=== PATIENT | male | born 1975 | race Caucasian/White ===

== ENCOUNTER 2022-03-04 18:25 | Emergency (ER) | payer SELFPAY ==
[~2022-03-04] VITALS: Ht 182.9 cm; Wt 136.0 kg
[2022-03-04] MEDS ORDERED: IBUPROFEN 400 MG TABLET. PO ONE (18:45)
[2022-03-04] MEDS ORDERED: ACETAMINOPHEN 325 MG TABLET. PO ONE (19:00)
--- NOTE | 2022-03-04 19:00 | PHYS DOC ---
Past Medical History Past Medical History: No Pertinent History Past Surgical History: Appendectomy, Cholecystectomy, Tonsillectomy Additional Past Surgical Histo: R knee General Adult EDM: Chief Complaint: MECHANICAL FALL HPI: HPI: 46-year-old male, past medical history of obesity, cholecystectomy, appendectomy, tonsillectomy, presents status post mechanical fall, patient was stepping out of his truck when his foot slipped on the wet step,'s slid backward and hit the posterior side of his head on the metal step as well as hurt his left foot. Patient has been ambulatory since. Denies any back or hip pain. No loss of consciousness, no anticoagulation. Review of Systems: Review of Systems: Constitutional: Denies fever or chills. [] Eyes: Denies change in visual acuity. [] HENT: Denies nasal congestion or sore throat. [] Respiratory: Denies cough or shortness of breath. [] Cardiovascular: Denies chest pain or edema. [] GI: Denies abdominal pain, nausea, vomiting, bloody stools or diarrhea. [] : Denies dysuria. [] Musculoskeletal: Denies back pain. + L foot pain Integument: Denies rash. [] Neurologic: + headache, no focal weakness or sensory changes. [] Endocrine: Denies polyuria or polydipsia. [] Lymphatic: Denies swollen glands. [] Psychiatric: Denies depression or anxiety. [] Heart Score: C/O Chest Pain: No Risk Factors: Risk Factors: DM, Current or recent (<one month) smoker, HTN, HLP, family history of CAD, obesity. Risk Scores: Score 0 - 3: 2.5% MACE over next 6 weeks - Discharge Home Score 4 - 6: 20.3% MACE over next 6 weeks - Admit for Clinical Observation Score 7 - 10: 72.7% MACE over next 6 weeks - Early Invasive Strategies Current Medications: Current Medications Medications (Trade) Dose Ordered Sig/Codie Start Time Stop Time Status Last Admin Dose Admin Acetaminophen (Tylenol) 650 mg 1X ONCE 03/04/22 19:00 03/04/22 19:01 Ibuprofen (Motrin) 400 mg 1X ONCE 03/04/22 18:45 03/04/22 18:48 DC Allergies: Allergies: Allergies Coded Allergies Type Severity Reaction Last Updated Verified No Known Drug Allergies 03/04/22 No Physical Exam: PE: Constitutional: Well developed, well nourished, no acute distress, non-toxic appearance. [] HENT: Normocephalic, atraumatic, bilateral external ears normal, oropharynx moist, no oral exudates, nose normal. [] Eyes: PERRLA, EOMI, conjunctiva normal, no discharge. [] Neck: Normal range of motion, no tenderness, supple, no stridor. [] Cardiovascular:Heart rate regular rhythm, no murmur [] Lungs & Thorax: Bilateral breath sounds clear to auscultation [] Abdomen: Bowel sounds normal, soft, no tenderness, no masses, no pulsatile masses. [] Skin: Warm, dry, no erythema, no rash. [] Back: No tenderness, no CVA tenderness. [] Extremities: +TTP L lateral midfoot, no deformity, ecchymosis or erythema, no cyanosis, no clubbing, ROM intact, no edema. [] Neurologic: Alert and oriented X 3, normal motor function, normal sensory function, no focal deficits noted. [] Psychologic: Affect normal, judgement normal, mood normal. [] Current Patient Data: Vital Signs: Vital Signs Date Time Temp Pulse Resp B/P (MAP) Pulse Ox O2 Delivery O2 Flow Rate FiO2 03/04/22 18:44 98.1 92 20 165/115 (132) 100 Room Air 98.1 EKG: EKG: [] Radiology/Procedures: Radiology/Procedures: [] Course & Med Decision Making: Course & Med Decision Making Pertinent Labs and Imaging studies reviewed. (See chart for details) Additional Social History: PMD from non-affiliated facility. Patient Lives at home. Family History: Non-pertinent to today's complaint. Nursing Notes Reviewed Previous Medical Records requested via [facility] Web: Reviewed by me. PROCEDURE: CT HEAD AND CERVICAL SPINE WO IMPRESSION: BRAIN: No evidence of acute intracranial abnormality. C-SPINE: No evidence of acute osseous abnormality involving the cervical spine. PROCEDURE: FOOT LEFT 3V FINDINGS/ IMPRESSION: Joint spaces and alignment maintained. No acute fracture. Small plantar and posterior calcaneal enthesophytes. Mild soft tissue prominence along the dorsal forefoot. EMERGENCY DEPARTMENT COURSE/ MEDICAL DECISION MAKING: I examined the patient, evaluated and addressed patient's chief complaint. s/p mechanical fall, workman's comp The patient was treated with Tylenol CT head and C-spine neg. X-ray left foot neg. Patient able to bear weight without difficulty. On re-assessment, patient feels much better. Normal gait. Stable for dc home with tylenol, ibuprofen, lidocaine patch, robaxin and routine pmd f/u. Return precautions given. The patient understands that todays Emergency Department evaluation does not represent a comprehensive medical workup, and it is impossible to diagnose all possible illnesses from a single Emergency Department visit. The patient verbalized understanding that it is absolutely necessary to have follow-up with regular primary care physician within 1-2 days for more detailed workup and continued exam. I explained the findings and plan to the patient, who expressed verbal understanding and agreed with plan for discharge and follow up. The patient was given after care instructions and welcomed to return to the ED for re-evaluation in 8-12 hours, especially for any new or worsening symptoms. Patient's blood pressure was elevated (>120/80) but appears stable without evidence of end organ damage, malignant hypertension, hypertensive emergency or urgency. The patient was counseled about the risks of hypertension and urged to pursue outpatient monitoring and therapy within a week with their primary care physician. The patient was stable at the time of discharge. DIAGNOSTIC IMPRESSION: 1. Mechanical fall 2. head trauma 3. headache 4. left foot pain 5. encounter for workman's comp DISPOSITION: Disposition: Discharge Home. Condition: Improved Follow-Up: PMD Prescriptions: tylenol, ibuprofen, robaxin, lidocaine patch Return to the Emergency Department for new or worsening symptoms. Dragon Disclaimer: Eunice Disclaimer: This electronic medical record was generated, in whole or in part, using a voice recognition dictation system. Departure Departure Impression: Primary Impression: Fall Additional Impressions: Foot pain, left Blunt head trauma Head ache Shoulder pain Encounter related to worker's compensation claim Disposition: HOME / SELF CARE / HOMELESS Condition: STABLE Scripts Methocarbamol (METHOCARBAMOL) 750 Mg Tablet 750 MG PO BID PRN for PAIN, #10 TAB Prov: ARELY SO MD 03/04/22 Lidocaine (Lidocaine PATCH ) 1 Each Adh..patch 1 EACH TP DAILY for FOR LOCAL PAIN, #30 PATCH REMOVE AFTER 12 HOURS Prov: ARELY SO MD 03/04/22 Ibuprofen (IBUPROFEN) 400 Mg Tablet 400 MG PO PRN Q6HRS PRN for INFLAMMATION, #30 TAB Prov: ARELY SO MD 03/04/22 Acetaminophen (ACETAMINOPHEN) 325 Mg Tablet 2 TAB PO PRN Q4-6HRS PRN for pain or fever, #60 TAB 0 Refills Prov: ARELY SO MD 03/04/22 ARELY SO MD March 04, 2022 19:00
--- NOTE | 2022-03-04 19:17 | RAD ---
EXAMINATION: XR FOOT_LEFT 3 VIEWS CLINICAL HISTORY: Left foot pain following fall. TECHNIQUE: XR FOOT_LEFT 3 VIEWS COMPARISON: None FINDINGS/ IMPRESSION: Joint spaces and alignment maintained. No acute fracture. Small plantar and posterior calcaneal enthe sophytes. Mild soft tissue prominence along the dorsal forefoot. Electronically signed by: Krystian Knapp DO (03/04/2022 7:15 PM) [facility]
--- NOTE | 2022-03-04 19:25 | RAD ---
EXAMINATION: CT HEAD AND C-SPINE WO CLINICAL HISTORY: Head and neck pain following fall. TECHNIQUE: Serial axial images without IV contrast were obtained from the vertex to the foramen magnum. CT of the cervical spine without IV contrast. Spiral, high resolution axial images were obtained from the skull base to the cervicothoracic junction with sagittal and coronal planar reconstructions. CT Dose Reduction Employed: One or more of the following individualized dose reduction techniques wer e utilized for this examination: 1. Automated exposure control 2. Adjustment of the mA and/or kV ac cording to patient size 3. Use of iterative reconstruction technique. COMPARISON: None FINDINGS: BRAIN: Acute Change: No evidence of an acute contusion or other acute parenchymal process. Hemorrhage: No evidence of acute intracranial hemorrhage. Mass Lesion/Mass Effect: No evidence of intracranial mass or extraaxial fluid collection. No signific ant mass effect. Parenchyma: Parenchyma within normal limits for age. Ventricles: Ventricles within normal limits for age. Paranasal Sinuses and Skull Base: Visualized paranasal sinuses clear. No evidence of acute calvarial fracture. C-SPINE: Alignment: Straightening to slight reversal of the normal cervical lordosis, likely positional. Osseous Structures: No evidence of acute fracture or spondylolisthesis. Degenerative Changes: No significant degenerative changes. Cervical Soft Tissues: No prevertebral soft tissue swelling. IMPRESSION: BRAIN: No evidence of acute intracranial abnormality. C-SPINE: No evidence of acute osseous abnormality involving the cervical spine. Electronically signed by: Krystian Knapp DO (03/04/2022 7:23 PM) [facility]
[2022-03-04] MEDS ORDERED: IBUP-1027 PO (19:35)
[2022-03-04] MEDS ORDERED: ACET325T21 PO (19:35)
[2022-03-04] MEDS ORDERED: LIDO700A21 TP (19:35)
[2022-03-04] MEDS ORDERED: METH-562 PO (19:36)
[2022-03-04 19:43] VITALS: BP 173/100
== END 2022-03-04 19:49 | disposition home or self-care (01) ==
LOC: ER 18:25
DX: S09.90XA Unspecified injury of head, initial encounter (principal); M79.672 Pain in left foot; R51.9 Headache, unspecified; M54.2 Cervicalgia; W18.39XA Other fall on same level, initial encounter; Y93.89 Activity, other specified; Y92.89 Other specified places as the place of occurrence of the external cause; Y99.8 Other external cause status
CPT/HCPCS: 70450; 72125; 73630; 99284-25